=== PATIENT | female | born 1965 | race Caucasian/White ===

== ENCOUNTER 2017-08-29 17:21 | Emergency (ER) | payer OTHER ==
[~2017-08-29] VITALS: Ht 149.9 cm; Wt 69.0 kg
[2017-08-29] MEDS ORDERED: LOSARTAN POTASS50 MG PO (18:05)
[2017-08-29] MEDS ORDERED: SIMVASTATIN20 MG PO (18:05)
[2017-08-29] MEDS ORDERED: ADULT LOW DOSE81 MG PO (18:06)
== END 2017-08-29 19:58 | disposition home or self-care (01) ==
LOC: ED 17:21
DX: N93.9 Abnormal uterine and vaginal bleeding, unspecified (principal); N92.4 Excessive bleeding in the premenopausal period; Z79.899 Other long term (current) drug therapy; Z79.82 Long term (current) use of aspirin
CPT/HCPCS: 84703; 85025; 99283

== ENCOUNTER 2019-08-25 08:32 | Day surgery (SDC) | payer OTHER ==
[~2019-08-25] VITALS: Ht 149.9 cm; Wt 73.5 kg
[~2019-08-25 08:32] MED LIST: ADULT LOW DOSE81 MG PO; LOSARTAN POTASS50 MG PO; SIMVASTATIN20 MG PO
--- NOTE | 2019-08-25 09:50 | NUR ---
08/25/19 0950 Sheets,Viviana 0952 PT ARRIVED TO PACU ON 3L VIA NC, PT WOKE TO TACTILE STIMULI AND REORIENTED TO PACU. PT FALLS EASILY BACK TO SLEEP. SMALL AMOUNT OF SNORING NOTED.
--- NOTE | 2019-08-26 07:29 | OR ---
[facility] [address], [place] [address] Signed DATE OF OPERATION: 08/25/2019 SURGEON: Anne Marie Cunningham MD PREOPERATIVE DIAGNOSIS: Screening. POSTOPERATIVE DIAGNOSIS: Minimal sigmoid diverticulosis. PROCEDURE: Colonoscopy without biopsy. ESTIMATED BLOOD LOSS: None. INDICATIONS: Dalila is a 54-year-old female, asked to see me for her initial screening colonoscopy. She has no lower GI complaints. There is no family history of colon cancer or polyps. She did mention her had colonic polyps when they lived in [place], [place]. Consequently, she is familiar with this whole process. In the office, I gave her a pamphlet on colonoscopy and we did review that together. She understands the nature of the test along with the risks including, but not limited to gas, bloating, crampy abdominal pain, bleeding, perforation requiring surgery, and missed diagnosis. She also understands the need for IV conscious sedation. She expressed understanding and wished to proceed. PROCEDURE NOTE: Dalila was taken into our endoscopy suite and placed in the left lateral decubitus position. She was given IV sedation with 6 mg of Versed and 100 mcg of fentanyl. A digital rectal exam was performed and this was unremarkable. The adult colonoscope was introduced and advanced under direct visualization of camera without difficulty. We could easily see the appendiceal orifice and the ileocecal valve. The scope was slowly withdrawn. We took pictures throughout for photodocumentation. She had a good prep. We saw a few diverticula in the sigmoid colon. They were moderate in size, minimal in number, and scattered about. There were no polyps. The rectum was unremarkable. Upon retroflexion of scope, there was no additional pathology noted above the anal canal. After this, the gas was suctioned out and colonoscope removed. Dalila tolerated the procedure quite well. Electronically Signed By: ANNE MARIE CUNNINGHAM MD 08/26/19 0729 PATIENT NAME: DALILA BHAKTA OPERATIVE REPORT DATE OF : 67 REPORT #: [id number] PHYSICIAN: ANNE MARIE CUNNINGHAM MD PCP: KENIA MARQUIS PAC REPORT IS CONFIDENTIAL AND NOT TO BE RELEASED WITHOUT AUTHORIZATION [facility] [address], [place] [address] Signed RECOMMENDATIONS: Dalila can return in 10 years for repeat colonoscopy. Anne Marie Cunningham MD ALB/MODL /[id number] cc: EVANGELINA Shepherd MD Copies: ANNE MARIE CUNNINGHAM MD ~ Electronically Signed By: ANNE MARIE CUNNINGHAM MD 08/26/19 0729 PATIENT NAME: DALILA BHAKTA OPERATIVE REPORT DATE OF : 67 REPORT #: [id number] PHYSICIAN: ANNE MARIE CUNNINGHAM MD PCP: KENIA MARQUIS PAC REPORT IS CONFIDENTIAL AND NOT TO BE RELEASED WITHOUT AUTHORIZATION
== END 2019-08-25 10:21 | disposition home or self-care (01) ==
LOC: OPS 08:32 → DS 09:45 → OPS 09:45
PROVIDERS: Colon & Rectal Surgery
PROC: 0DJD8ZZ Inspection of Lower Intestinal Tract, Via Natural or Artificial Opening Endoscopic (ICD-10-PCS; principal; 2019-08-25 10:00)
DX: Z12.11 Encounter for screening for malignant neoplasm of colon (principal); K57.30 Diverticulosis of large intestine without perforation or abscess without bleeding; I25.10 Atherosclerotic heart disease of native coronary artery without angina pectoris; I25.84 Coronary atherosclerosis due to calcified coronary lesion; I10 Essential (primary) hypertension; E78.5 Hyperlipidemia, unspecified; E66.9 Obesity, unspecified; Z79.82 Long term (current) use of aspirin; Z79.899 Other long term (current) drug therapy; Z68.32 Body mass index [BMI] 32.0-32.9, adult
CPT/HCPCS: G0500; J2250; J3010